=== PATIENT | male | born 1980 | race African-American/Black ===

== ENCOUNTER 2022-11-19 22:50 | Emergency (ER) | payer MEDICAID ==
[~2022-11-19] VITALS: Ht 177.8 cm; Wt 84.0 kg
[2022-11-19 23:03] VITALS: TEMP 98.5
[2022-11-20] MEDS ORDERED: KETOROLAC TROMETHAMINE 30 MG/ML VIAL IM ONE (00:15)
[2022-11-20] MEDS ORDERED: IBUP-1492 PO (01:29)
[2022-11-20 02:12] VITALS: BP 122/61; PULSE 82; RESP 17
== END 2022-11-20 02:36 | disposition home or self-care (01) ==
LOC: EMS 22:51
DX: M76.50 Patellar tendinitis, unspecified knee (principal)
CPT/HCPCS: 99283; 73562; 96372; J1885